=== PATIENT | female | born 1945 | race Caucasian/White ===

== ENCOUNTER 2021-05-18 10:54 | Emergency (ER) | payer OTHER ==
[~2021-05-18] VITALS: Ht 157.5 cm; Wt 65.8 kg
[2021-05-18] MEDS ORDERED: LIPITOR 20 MG T20 M1 PO (11:08)
[2021-05-18] MEDS ORDERED: PROTONIX40 M2 PO (11:08)
[2021-05-18] MEDS ORDERED: GLIPIZIDE 10 MG10 MG PO (11:08)
[2021-05-18 11:25] LABS: HEMATOCRIT 41.6 % (37.0-47.0); HEMOGLOBIN 13.5 gm/dL (12.0-15.0); MCH 27.6 pg (26.0-34.0); MCHC 32.6 g/dL (28.0-37.0); MCV 84.7 fL (80.0-100.0); RBC 4.91 mil/uL (4.20-5.00)
[2021-05-18 12:20] VITALS: BP 155/82
== END 2021-05-18 12:24 | disposition home or self-care (01) ==
LOC: M.ERS 10:54
PROVIDERS: Emergency Medicine Emergency Medical Services
DX: R04.0 Epistaxis (principal); Z79.899 Other long term (current) drug therapy; Z88.1 Allergy status to other antibiotic agents

== ENCOUNTER 2021-06-06 08:58 | Emergency (ER) | payer OTHER ==
[~2021-06-06] VITALS: Ht 157.5 cm; Wt 63.5 kg
[~2021-06-06 08:58] MED LIST: GLIPIZIDE 10 MG10 MG PO; LIPITOR 20 MG T20 M1 PO; PROTONIX40 M2 PO
[2021-06-06 11:51] VITALS: BP 172/86
== END 2021-06-06 11:54 | disposition home or self-care (01) ==
LOC: M.ERS 08:58
DX: R04.0 Epistaxis (principal); J44.9 Chronic obstructive pulmonary disease, unspecified; Z79.899 Other long term (current) drug therapy; Z88.1 Allergy status to other antibiotic agents

== ENCOUNTER 2021-08-24 18:33 | Inpatient (IN) | payer OTHER ==
[~2021-08-24] VITALS: Ht 157.5 cm; Wt 58.8 kg
[2021-08-24 18:34] VITALS: BP 125/63
[2021-08-24 18:56] LABS: ABSOLUTE BASOPHILS 0.2 thou/uL (0.0-0.2); ABSOLUTE EOSINOPHILS 0.2 thou/uL (0.0-0.7); ABSOLUTE LYMPHOCYTES 1.8 thou/uL (0.8-5.3); ABSOLUTE MONOCYTES 0.9 thou/uL (0.0-1.2); ABSOLUTE NEUTROPHILS 16.2 thou/uL (1.6-8.1); BASOPHILS 1.1 %; HEMATOCRIT 42.9 % (37.0-47.0); HEMOGLOBIN 13.7 gm/dL (12.0-15.0); LYMPHOCYTES 9.6 %; MCH 27.2 pg (26.0-34.0); MCV 85.2 fL (80.0-100.0); MONOCYTES 4.4 %; MPV 8.9 fl. (7.2-11.1); NUCLEATED RBCS 0 /100WBC; PLATELET COUNT* 267 thou/uL (150-400); POLYS 83.9 %; RBC 5.04 mil/uL (4.20-5.00); RDW-CV 14.6 % (10.5-14.5); WBC 19.2 thou/uL (4.0-11.0)
[2021-08-24 19:04] LABS: CREATININE 0.7 mg/dL (0.6-1.3); POTASSIUM 5.1 mmol/L (3.5-5.1)
[2021-08-24 19:09] LABS: ALBUMIN 2.3 g/dL (3.4-5.0); TOTAL BILIRUBIN 0.4 mg/dL (<0.1-1.0); TOTAL PROTEIN 7.7 g/dL (6.4-8.2)
[2021-08-24 21:31] VITALS: BP 121/70
[2021-08-24 22:00] VITALS: BP 126/63
[2021-08-25 07:30] VITALS: BP 137/53
--- NOTE | 2021-08-25 10:19 | EKG ---
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 : 1945 Requested By: Saji Alvarez Order Number: [id number] MD: Parker Duvall Measurements Intervals Alvin Rate: 113 P: 68 NC: 144 QRS: 37 QRSD: 88 T: 55 QT: 331 QTc: 454 Interpretive Statements Sinus tachycardia Consider right atrial enlargement Compared to ECG 11/27/2008 19:16:34 Sinus rhythm no longer present Prolonged QT interval no longer present Electronically Signed On 08-25-2021 10:19:22 HUMAN RESOURCES CLERK by Parker Duvall [email or web address] <ELECTRONICALLY SIGNED> By: Parker Duvall MD, FACC 08/25/21 1019 1847 1847 Parker Duvall MD, [facility] /EPI
[2021-08-25 14:49] LABS: URINE BILIRUBIN NEGATIVE (Negative); URINE BLOOD NEGATIVE (Negative); URINE CLARITY CLEAR; URINE COLOR YELLOW; URINE GLUCOSE-RANDOM 3+ (Negative); URINE KETONES NEGATIVE (Negative); URINE LEUKOCYTES NEGATIVE (Negative); URINE NITRITE NEGATIVE (Negative); URINE PROTEIN NEGATIVE (Negative); URINE UROBILINOGEN 0.2 E.U./dl (0.2-1.0)
[2021-08-25 16:00] VITALS: BP 116/60
[2021-08-25 19:30] VITALS: BP 115/64
[2021-08-26 09:30] VITALS: BP 115/53
[2021-08-26 16:43] VITALS: BP 112/54
[2021-08-26 20:00] VITALS: BP 117/51
[2021-08-27 02:32] VITALS: BP 105/45
[2021-08-27 04:11] LABS: HEMATOCRIT 36.9 % (37.0-47.0); HEMOGLOBIN 11.8 gm/dL (12.0-15.0); MCH 27.6 pg (26.0-34.0); MCHC 32.1 g/dL (28.0-37.0); MPV 8.8 fl. (7.2-11.1); RBC 4.29 mil/uL (4.20-5.00); RDW-CV 14.9 % (10.5-14.5); WBC 12.9 thou/uL (4.0-11.0)
[2021-08-27 04:53] LABS: CALCIUM 8.5 mg/dL (8.5-10.1); CREATININE 0.5 mg/dL (0.6-1.3); MAGNESIUM 1.8 mg/dL (1.8-2.4); POTASSIUM 3.7 mmol/L (3.5-5.1); TOTAL BILIRUBIN 0.6 mg/dL (<0.1-1.0)
[2021-08-27 08:00] VITALS: BP 109/62
[2021-08-27 09:30] VITALS: BP 109/62
[2021-08-27 16:00] VITALS: BP 127/54
[2021-08-27 17:29] LABS: BE 2.8 mmol/L (-2 to +3); PCO2 VENOUS 48.5 mmHg (41.0-51.0); PO2 VENOUS 68.5 mmHg (35.0-45.0)
[2021-08-27 20:21] VITALS: BP 113/54
[2021-08-28 08:30] VITALS: BP 112/56
--- NOTE | 2021-08-28 09:53 | EKG ---
[place] [address] ELECTROCARDIOGRAM REPORT Name: MAURICIO TAYLOR Room: [address] ADM IN [facility]#: [id number] Admission: 08/24/21 Attend Phys: Itzel Harry Discharge: Date of : 45 Date of Service: 08/27/21 1633 Report #: [id number] THIS REPORT FOR: //name// [facility] Test Date: 2021-08-27 Test Time: 16:33:22 Pat Name: MAURICIO CLAUDIA Department: Room: [address] Gender: F Tree Surgeon: DSL : 1945 Requested By: Fan Malloy Order Number: [id number] Reading MD: Robert Ferrara Measurements Intervals [place]cho Rate: 107 P: 56 GA: 145 QRS: 35 QRSD: 90 T: 44 QT: 323 QTc: 431 Interpretive Statements Sinus tachycardia Artifact in lead(s) II,III,aVR,aVF Compared to ECG 08/24/2021 18:47:41 No significant changes Electronically Signed On 08-28-2021 9:53:22 EXTRACTOR PLANT OPERATOR by Robert Ferrara [email or web address] <ELECTRONICALLY SIGNED> By: Robert Ferrara MD, FAC 08/28/21 0953 1633 1633 Robert Ferrara MD, [facility] /EPI
[2021-08-28 15:50] VITALS: BP 111/60
[2021-08-28 20:00] VITALS: BP 93/41
[2021-08-29 00:02] VITALS: BP 112/49
[2021-08-29 08:30] VITALS: BP 114/75
[2021-08-29 12:09] LABS: URINE BILIRUBIN NEGATIVE (Negative); URINE BLOOD NEGATIVE (Negative); URINE CLARITY CLEAR; URINE COLOR YELLOW; URINE GLUCOSE-RANDOM 2+ (Negative); URINE KETONES NEGATIVE (Negative); URINE LEUKOCYTES NEGATIVE (Negative); URINE NITRITE NEGATIVE (Negative); URINE PROTEIN NEGATIVE (Negative); URINE SPECIFIC GRAVITY 1.015 (1.005-1.030)
[2021-08-29] MEDS ORDERED: BAYER CHEWABLE81 MG PO (12:28)
[2021-08-29] MEDS ORDERED: NOVOLOG100 UNIT/M SUBQ (12:28)
[2021-08-29] MEDS ORDERED: VITAMIN C1000 MG PO (12:28)
[2021-08-29] MEDS ORDERED: VITAMIN D325 MC2 PO (12:28)
[2021-08-29 15:50] VITALS: BP 131/48
[2021-08-29 16:48] LABS: BE 5.9 mmol/L (-2 to +3); PCO2 VENOUS 49.9 mmHg (41.0-51.0); PO2 VENOUS 33.4 mmHg (35.0-45.0)
[2021-08-29 20:00] VITALS: BP 138/65
[2021-08-30 08:00] VITALS: BP 100/50
[2021-08-30] MEDS ORDERED: LANTUS SUBQ (12:48)
[2021-08-30 16:01] VITALS: BP 137/62
== END 2021-08-30 17:00 | DRG 871 ==
LOC: M.ERS 18:33 → M.3W 20:27 → M.TBA-ER 20:27 → M.3W 21:48
PROVIDERS: Internal Medicine; Physician Assistant; ADMIT Internal Medicine; ATTEND Internal Medicine
PROC: 5A0935A Assistance with Respiratory Ventilation, Less than 24 Consecutive Hours, High Flow/Velocity Cannula (ICD-10-PCS; principal; 2021-08-24)
PROC: 5A0945A Assistance with Respiratory Ventilation, 24-96 Consecutive Hours, High Flow/Velocity Cannula (ICD-10-PCS; 2021-08-28)
DX: A41.89 Other specified sepsis (principal); E43 Unspecified severe protein-calorie malnutrition; J96.11 Chronic respiratory failure with hypoxia; Z20.822 Contact with and (suspected) exposure to COVID-19; J44.9 Chronic obstructive pulmonary disease, unspecified; K21.9 Gastro-esophageal reflux disease without esophagitis; U09.9 Post COVID-19 condition, unspecified; R54 Age-related physical debility; R62.7 Adult failure to thrive; Z68.23 Body mass index [BMI] 23.0-23.9, adult; Z88.1 Allergy status to other antibiotic agents; Z87.891 Personal history of nicotine dependence